=== PATIENT | female | born 1995 | race Caucasian/White ===

== ENCOUNTER 2019-05-05 20:46 | Emergency (ER) | payer OTHER ==
[2019-05-05 21:09] VITALS: BP 117/76; PULSE 97; TEMP 100.2; BMI 31.1
[2019-05-06] MEDS ORDERED: ACETAMINOPHEN 325 MG TABLET (FP) PO ONE (00:38)
[2019-05-06] MEDS ORDERED: ACETAMINOPHEN 325 MG TABLET (FP) ONE (00:39)
--- NOTE | 2019-05-06 00:56 | PDOC ---
Documentation entered by Jabier Ohara SCRIBE, acting as scribe for Ophelia Baeza MD. Ophelia Baeza MD: This documentation has been prepared by the Lev perez Daniel, SCRIBE, under my direction and personally reviewed by me in its entirety. I confirm that the documentation accurately reflects all work, treatment, procedures, and medical decision making performed by me. History of Present Illness - General Chief Complaint: Sore Throat Stated Complaint: SORE THROAT/COUGH Time Seen by Provider: 05/06/19 00:31 History Source: Patient Exam Limitations: No Limitations - History of Present Illness Initial Comments: 05/06/19 00:41 The patient is a 23 year old female with no past medical history here today for evaluation of sore throat. The patient reports that she has had a sore throat since monday (05/01/19) and that it got better at first but then became worse. She also notes associated ear pain, fever, cough, and congestion. She also notes that her mother was sick with the flu the past week. Allergies: NKA Past History - Past Medical History Allergies/Adverse Reactions: Allergies Allergy/AdvReac Type Severity Reaction Status Date / Time No Known Allergies Allergy Verified 05/05/19 21:09 Home Medications: Ambulatory Orders NK [No Known Home Medication] 05/23/13 COPD: No - Psycho Social/Smoking Cessation Hx Smoking History: Never smoked Have you smoked in the past 12 months: No Information on smoking cessation initiated: No Hx Alcohol Use: No Drug/Substance Use Hx: No Review of Systems - Review of Systems Able to Perform ROS?: Yes Comments:: 05/06/19 00:41 CONSTITUTIONAL: +fever Absent: chills, diaphoresis, generalized weakness, malaise, loss of appetite HEENT: +throat pain. +congestion. Absent: rhinorrhea, throat swelling, difficulty swallowing, mouth swelling, ear pain, eye pain, visual Changes CARDIOVASCULAR: Absent: chest pain, syncope, palpitations, irregular heart rate, lightheadedness , peripheral edema RESPIRATORY: +cough Absent: shortness of breath, dyspnea with exertion, orthopnea, wheezing, stridor , hemoptysis GASTROINTESTINAL: Absent: abdominal pain, abdominal distension, nausea, vomiting, diarrhea, constipation, melena, hematochezia GENITOURINARY: Absent: dysuria, frequency, urgency, hesitancy, hematuria, flank pain, genital pain MUSCULOSKELETAL: Absent: myalgia, arthralgia, joint swelling SKIN: Absent: rash, itching, pallor HEMATOLOGIC/IMMUNOLOGIC: Absent: easy bleeding, easy bruising, lymphadenopathy, frequent infections ENDOCRINE: Absent: unexplained weight gain, unexplained weight loss, heat intolerance, cold intolerance NEUROLOGIC: Absent: headache, focal weakness or paresthesias, dizziness, unsteady gait, seizure, mental status changes, bladder or bowel incontinence PSYCHIATRIC: Absent: anxiety, depression, suicidal or homicidal ideation, hallucinations. *Physical Exam - Vital Signs Last Vital Signs Temp Pulse Resp BP Pulse Ox 100.2 F H 97 H 17 117/76 99 05/05/19 21:06 05/05/19 21:06 05/05/19 21:06 05/05/19 21:06 05/05/19 21:06 - Physical Exam 05/06/19 00:42 GENERAL: Well-appearing, well-nourished. No apparent distress. HEENT: +rhinorrhea. +congestion Normocephalic, atraumatic. PERRL, EOM intact. CARDIOVASCULAR: +mild tachycardia Normal S1, S2. Regular rhythm. PULMONARY: Clear to auscultation bilaterally. ABDOMEN: Soft, non-distended, non-tender. EXTREMITIES: Normal ROM in all four extremities. No gross deformities. SKIN: Warm, dry. No rash NEUROLOGICAL: No focal neurological deficits. ED Treatment Course - Medications Given in the ED: ED Medications Discontinued Medications Generic Name Dose Route Start Last Admin Trade Name Freq PRN Reason Stop Dose Admin Acetaminophen 650 mg 05/06/19 00:38 05/06/19 00:40 Tylenol - PO 05/06/19 00:39 650 mg ONCE ONE Administration Medical Decision Making - Medical Decision Making 05/06/19 00:55 23-year-old female who has had fever, chills, nasal congestion, cough and sore throat since Monday presents with the symptoms. She states that her mother is suffering from the flu is currently 05/06/19 01:23 She is influenza positive however she is been sick for 5 days and Tamiflu would not be helpful Discharged home with instructions to take Tylenol or Motrin for fever headaches or muscle aches rest drink plenty of fluids Discharge - Discharge Information Problems reviewed: Yes Clinical Impression/Diagnosis: Influenza A Condition: Good Disposition: HOME - Admission No - Follow up/Referral - Patient Discharge Instructions Patient Printed Discharge Instructions: DI for Influenza -- Adult Additional Instructions: Rest Take Tylenol Motrin for fever and body aches Keep hydrated Return if you develop any breathing difficulties - Post Discharge Activity
== END 2019-05-06 01:31 | disposition home or self-care (01) ==
LOC: JER 20:46 → JERFT 20:46 → JER 05-06 01:31
DX: J09.X2 Influenza due to identified novel influenza A virus with other respiratory manifestations (principal)
CPT/HCPCS: 87070; 87804; 87880; 99282-25

== ENCOUNTER 2021-09-26 20:24 | Inpatient (IN) | payer BC, OTHER ==
[2021-09-26 23:11] LABS: EPI CELLS 6 /uL (0-25.1); HCG,QUALITATIVE URINE Negative; HYALINE CASTS 2 /uL (0-3.1); URINE APPEARANCE CLEAR; URINE BACTERIA 57 /uL (0-1359); URINE BILIRUBIN NEGATIVE (NEGATIVE); URINE COLOR YELLOW; URINE GLUCOSE (UA) 3+ (NEGATIVE); URINE KETONE 4+ (NEGATIVE); URINE LEUK ESTERASE NEGATIVE (NEGATIVE); URINE NITRITE NEGATIVE (NEGATIVE); URINE PROTEIN 2+ (NEGATIVE); URINE RBC 5 /uL (0-23.9); URINE UROBILINOGEN 0.2 mg/dL (0.2-1.0); URINE WBC 27 /uL (0-25.8)
[2021-09-26] MEDS ORDERED: SODIUM CHLORIDE 0.9% 500 ML INFUS.BAG IV ONE (23:16)
[2021-09-26 23:34] LABS: BASO % 0.8 % (0-2.0); EOS % 2.1 % (0-4.5); HEMATOCRIT 42.7 % (32.4-45.2); HEMOGLOBIN 14.5 GM/dL (10.7-15.3); LYMPH % 36.2 % (8-40); MCH 28.9 pg (25.7-33.7); MCHC 33.9 g/dl (32.0-36.0); MEAN CELL VOLUME 85.1 fl (80-96); MEAN PLT VOLUME 10.1 fl (7.5-11.1); MONO % 6.1 % (3.8-10.2); NEUT % 54.8 % (42.8-82.8); PLATELET COUNT 273 10^3/uL (134-434); RBC 5.01 M/mm3 (3.60-5.2); RDW 13.1 % (11.6-15.6); WHITE BLOOD COUNT 7.8 K/mm3 (4.0-10.0)
[2021-09-26 23:36] LABS: VENOUS BASE EXCESS -16.2 mmol/L (-2-2); VENOUS O2 SATURATION 90.4 % (70-80); VENOUS PCO2 26.9 mmHg (38-52)
[2021-09-26 23:43] LABS: VENOUS PH 7.196 (7.310-7.410)
[2021-09-26 23:55] LABS: CHLORIDE 98 mmol/L (98-107); SODIUM 130 mmol/L (136-145)
[2021-09-26 23:56] LABS: ANION GAP 19 MMOL/L (8-16); BLOOD UREA NITROGEN 12.9 mg/dL (7-18); CALCIUM 9.3 mg/dL (8.5-10.1); CO2 12 mmol/L (21-32)
[2021-09-26 23:58] LABS: ALBUMIN 4.8 g/dl (3.4-5.0)
[2021-09-26 23:59] LABS: SGPT/ALT 226 U/L (13-61)
[2021-09-27] LABS: SGOT/AST 152 U/L (15-37)
[2021-09-27 00:02] LABS: BILIRUBIN,TOTAL 0.5 mg/dL (0.2-1); TOT PROT 9.4 g/dl (6.4-8.2)
[2021-09-27 00:03] LABS: ALK PHOS 133 U/L (45-117)
[2021-09-27 00:14] LABS: GLUCOSE,RANDOM 419 mg/dL (74-106)
[2021-09-27] MEDS ORDERED: INSULIN REGULAR HUMAN 100 UNITS/ML *VIAL* (FOR IVP) IVPUSH ONE ×2 (00:18→09:00)
[2021-09-27] MEDS ORDERED: POTASSIUM CHLORIDE 20 MEQ PREMIX IVPB 100 ML IVPB ONE (00:18)
[2021-09-27] MEDS ORDERED: INSULIN REGULAR 100 UNITS in SODIUM CHLORIDE 99 ML IVPB SCH ×3 (00:30→09:30)
[2021-09-27] MEDS ORDERED: KCL 10 MEQ IVPB 10 MEQ/100 ML INFUS.BAG IVPB ONE (00:39)
[2021-09-27] MEDS ORDERED: SODIUM CHLORIDE 0.45% 1,000 ML with POTASSIUM CHLORIDE 20 MEQ IV ONE (01:00)
[2021-09-27 02:02] LABS: VENOUS O2 SATURATION 44.2 % (70-80); VENOUS PCO2 37.7 mmHg (38-52)
[2021-09-27 02:04] LABS: VENOUS PH 7.11 (7.310-7.410)
[2021-09-27 02:14] LABS: BLOOD UREA NITROGEN 10.7 mg/dL (7-18)
[2021-09-27 02:18] LABS: CREATININE 0.8 mg/dL (0.55-1.3)
[2021-09-27 02:24] LABS: CALCIUM 7.8 mg/dL (8.5-10.1)
[2021-09-27 04:17] LABS: BLOOD UREA NITROGEN 8.8 mg/dL (7-18)
[2021-09-27 04:20] LABS: CREATININE 0.8 mg/dL (0.55-1.3)
[2021-09-27] MEDS ORDERED: D5-1/2NS+30 MEQ KCL - 30 MEQ/1,000 ML INFUS.BAG IV SCH (04:45)
[2021-09-27 06:55] LABS: VENOUS BASE EXCESS -14.3 mmol/L (-2-2); VENOUS O2 SATURATION 96.6 % (70-80); VENOUS PCO2 31.5 mmHg (38-52); VENOUS PH 7.209 (7.310-7.410)
[2021-09-27] MEDS ORDERED: INSULIN SLIDING SCALE (NOVOLOG) 1 VIAL SQ SCH ×2 (07:00→08:35)
[2021-09-27 07:27] LABS: CALCIUM 8.2 mg/dL (8.5-10.1)
[2021-09-27 07:29] LABS: BLOOD UREA NITROGEN 7.8 mg/dL (7-18); MAGNESIUM 1.9 mg/dL (1.8-2.4)
[2021-09-27 07:31] LABS: CREATININE 0.7 mg/dL (0.55-1.3)
[2021-09-27] MEDS ORDERED: DEXTROSE 50%-WATER - 25 GM/50 ML VIAL IVPUSH PRN (08:36)
[2021-09-27] MEDS ORDERED: ENOXAPARIN NA (PORCINE) 40 MG/0.4 ML DISP.SYRIN SQ SCH (10:00)
[2021-09-27] MEDS ORDERED: INSULIN (LEVEMIR) 100 UNITS/ML UNITS SQ SCH ×2 (10:00→22:00)
[2021-09-27] MEDS ORDERED: MUPIROCIN 2% TOPICAL OINTMENT FOR DECOLONIZATION NS SCH ×2 (10:00→22:00)
[2021-09-27 14:40] LABS: BILIRUBIN,DIRECT 0.1 mg/dL (0.0-0.2)
[2021-09-27 14:43] LABS: BILIRUBIN,TOTAL 0.3 mg/dL (0.2-1)
[2021-09-27 14:55] LABS: ALBUMIN 3.7 g/dl (3.4-5.0)
[2021-09-27 15:05] LABS: ALBUMIN 3.5 g/dl (3.4-5.0); CALCIUM 8.4 mg/dL (8.5-10.1)
[2021-09-27 15:06] LABS: BLOOD UREA NITROGEN 4.5 mg/dL (7-18)
[2021-09-27 15:07] LABS: CREATININE 0.6 mg/dL (0.55-1.3)
[2021-09-27 15:10] LABS: BILIRUBIN,DIRECT 0.2 mg/dL (0.0-0.2)
[2021-09-27 15:11] LABS: BILIRUBIN,TOTAL 0.5 mg/dL (0.2-1)
[2021-09-27] MEDS ORDERED: INSULIN (NOVOLOG) ASPART 100 UNITS/ML 10ML VIAL SQ SCH (16:30)
[2021-09-27 16:50] LABS: ALBUMIN 3.6 g/dl (3.4-5.0)
[2021-09-27 16:54] LABS: BILIRUBIN,DIRECT 0.1 mg/dL (0.0-0.2); BILIRUBIN,TOTAL 0.5 mg/dL (0.2-1); TOT PROT 7.2 g/dl (6.4-8.2)
[2021-09-27] MEDS: INSULIN (NOVOLOG) ASPART 100 UNITS/ML 10ML VIAL SQ SCH (17:10)
[2021-09-27] MEDS ORDERED: CHLORHEXIDINE GLUCONATE 4% CLEANSER FOR DECOLONIZATION TP SCH ×2 (22:00)
[2021-09-27] MEDS ORDERED: IBUPROFEN 400 MG TABLET (FP) PO ONE (22:07)
[2021-09-28] MEDS: INSULIN (NOVOLOG) ASPART 100 UNITS/ML 10ML VIAL SQ SCH ×3 (06:39→17:47)
[2021-09-28 09:47] LABS: HEMATOCRIT 37.1 % (32.4-45.2); HEMOGLOBIN 12.9 GM/dL (10.7-15.3); MCH 29.3 pg (25.7-33.7); MCHC 34.8 g/dl (32.0-36.0); MEAN CELL VOLUME 84.2 fl (80-96); MEAN PLT VOLUME 10.2 fl (7.5-11.1); PLATELET COUNT 210 10^3/uL (134-434); RBC 4.41 M/mm3 (3.60-5.2); RDW 12.9 % (11.6-15.6); WHITE BLOOD COUNT 3.9 K/mm3 (4.0-10.0)
[2021-09-28] MEDS: ENOXAPARIN NA (PORCINE) 40 MG/0.4 ML DISP.SYRIN SQ SCH (10:10)
[2021-09-28] MEDS: SODIUM CHLORIDE 1,000 ML IV SCH (10:20)
[2021-09-28] MEDS: INSULIN (LEVEMIR) 100 UNITS/ML UNITS SQ SCH ×2 (10:40→22:18)
[2021-09-28] MEDS ORDERED: INSULIN SLIDING SCALE (NOVOLOG) 1 VIAL SQ ONE (10:44)
[2021-09-28 10:48] LABS: CALCIUM 9.1 mg/dL (8.5-10.1)
[2021-09-28 10:49] LABS: BLOOD UREA NITROGEN 5.9 mg/dL (7-18)
[2021-09-28 10:51] LABS: CREATININE 0.6 mg/dL (0.55-1.3)
[2021-09-28 15:37] VITALS: BMI 31.2
[2021-09-28 16:17] LABS: CALCIUM 8.6 mg/dL (8.5-10.1)
[2021-09-28 16:19] LABS: BLOOD UREA NITROGEN 7.4 mg/dL (7-18)
[2021-09-28 16:21] LABS: CREATININE 0.6 mg/dL (0.55-1.3)
[2021-09-28] MEDS ORDERED: ATORVASTATIN CA 20 MG TABLET (FP) PO SCH (22:00)
[2021-09-28] MEDS: INSULIN SLIDING SCALE (NOVOLOG) 1 VIAL SQ SCH (22:18)
[2021-09-29] MEDS: INSULIN (LEVEMIR) 100 UNITS/ML UNITS SQ SCH (06:26)
[2021-09-29] MEDS: INSULIN SLIDING SCALE (NOVOLOG) 1 VIAL SQ SCH ×3 (06:27→16:24)
[2021-09-29] MEDS ORDERED: INSULIN (LEVEMIR) 100 UNITS/ML UNITS SQ ONE (07:51)
[2021-09-29 08:44] LABS: HEMATOCRIT 33.3 % (32.4-45.2); HEMOGLOBIN 11.6 GM/dL (10.7-15.3); MCHC 34.7 g/dl (32.0-36.0); MEAN CELL VOLUME 83.6 fl (80-96); MEAN PLT VOLUME 9.9 fl (7.5-11.1); PLATELET COUNT 180 10^3/uL (134-434); RBC 3.99 M/mm3 (3.60-5.2); RDW 13.1 % (11.6-15.6); WHITE BLOOD COUNT 3.7 K/mm3 (4.0-10.0)
[2021-09-29 09:16] LABS: ALBUMIN 3.3 g/dl (3.4-5.0); BLOOD UREA NITROGEN 5.6 mg/dL (7-18)
[2021-09-29 09:17] LABS: MAGNESIUM 1.9 mg/dL (1.8-2.4)
[2021-09-29 09:18] LABS: CALCIUM 8.5 mg/dL (8.5-10.1)
[2021-09-29 09:19] LABS: PHOSPHOROUS 3.6 mg/dL (2.5-4.9)
[2021-09-29 09:21] LABS: BILIRUBIN,TOTAL 0.6 mg/dL (0.2-1); CREATININE 0.5 mg/dL (0.55-1.3); TOT PROT 6.3 g/dl (6.4-8.2)
[2021-09-29] MEDS ORDERED: LISINOPRIL 5 MG TABLET PO SCH (10:00)
[2021-09-29] MEDS: SODIUM CHLORIDE 1,000 ML IV SCH (10:04)
[2021-09-29] MEDS: ENOXAPARIN NA (PORCINE) 40 MG/0.4 ML DISP.SYRIN SQ SCH (10:05)
[2021-09-29 14:47] VITALS: BP 113/83; PULSE 89; TEMP 98.5
== END 2021-09-29 17:58 | disposition home or self-care (01) | DRG 639 ==
LOC: JERFT 20:24 → JERBED 09-27 00:19 → JICU 09-27 02:52 → J5S 09-27 18:02
PROVIDERS: ADMIT Internal Medicine Pulmonary Disease
DX: E11.10 Type 2 diabetes mellitus with ketoacidosis without coma (principal); E66.9 Obesity, unspecified; Z68.31 Body mass index [BMI] 31.0-31.9, adult; R74.01 Elevation of levels of liver transaminase levels; E78.1 Pure hyperglyceridemia; E86.0 Dehydration; R80.9 Proteinuria, unspecified; K76.0 Fatty (change of) liver, not elsewhere classified
CPT/HCPCS: 36415; 71045-TC-FY; 76705-TC; 76775-TC; 80048; 80053; 80061; 80076; 81003; 82010; 82248; 82570; 82803; 82962; 83036; 83605; 83735; 84100; 84156; 84443; 84703; 85025; 85027; 86341; 86705; 87086; 87340; 87350; 87517; 87902; 93005; 93010; 99285-25; C9803-CS; U0003; U0005

== ENCOUNTER 2023-08-21 13:34 | Inpatient (IN) | payer BC ==
[2023-08-21] MEDS ORDERED: ONDANSETRON 4 MG/2 ML VIAL ONE (16:18)
[2023-08-21] MEDS: ONDANSETRON 4 MG/2 ML VIAL IVPUSH ONE (16:30)
[2023-08-21 16:42] LABS: BASO % 0.2 % (0-2.0); EOS % 0.3 % (0-4.5); HEMATOCRIT 46.2 % (32.4-45.2); HEMOGLOBIN 15.5 GM/dL (10.7-15.3); LYMPH % 17.2 % (8-40); MCH 29.6 pg (25.7-33.7); MCHC 33.5 g/dl (32.0-36.0); MEAN CELL VOLUME 88.4 fl (80-96); MEAN PLT VOLUME 10.3 fl (7.5-11.1); MONO % 4.9 % (3.8-10.2); NEUT % 77.4 % (42.8-82.8); PLATELET COUNT 309 10^3/uL (134-434); RBC 5.23 M/mm3 (3.60-5.2); RDW 13.4 % (11.6-15.6); WHITE BLOOD COUNT 10.5 K/mm3 (4.0-10.0)
[2023-08-21 16:46] LABS: VENOUS BASE EXCESS -21.7 mmol/L (-2-2); VENOUS O2 SATURATION 87.7 % (70-80)
[2023-08-21 16:51] LABS: VENOUS PH 7.118 (7.310-7.410)
[2023-08-21 16:56] LABS: INR 1.07 (0.83-1.09); PROTHROMBIN TIME (PATIENT) 12.4 SEC (9.7-13.0)
[2023-08-21 17:11] LABS: ALBUMIN 4.8 g/dl (3.4-5.0); BLOOD UREA NITROGEN 9.9 mg/dL (7-18); CALCIUM 9.4 mg/dL (8.5-10.1); MAGNESIUM 2.4 mg/dL (1.8-2.4)
[2023-08-21 17:16] LABS: BILIRUBIN,TOTAL 0.5 mg/dL (0.2-1); TOT PROT 9.3 g/dl (6.4-8.2)
[2023-08-21] MEDS ORDERED: DEXTROSE 50%-WATER - 25 GM/50 ML VIAL IVPUSH PRN (19:22)
[2023-08-21] MEDS ORDERED: INSULIN REGULAR HUMAN 100 UNITS/ML *VIAL ONE (19:42)
[2023-08-21] MEDS ORDERED: METOCLOPRAMIDE HCL INJECTION 10 MG/2 ML VIAL ONE (19:42)
[2023-08-21] MEDS ORDERED: ACETAMINOPHEN INJECTION 100 ML IVPB ONE (19:42)
[2023-08-21] MEDS: ACETAMINOPHEN 1000 MG/100 ML BAG IVPB ONE (19:50)
[2023-08-21] MEDS: LACTATED RINGERS SOLUTION 1000 ML INFUS.BAG IV ONE (19:50)
[2023-08-21] MEDS: METOCLOPRAMIDE HCL INJECTION 10 MG/2 ML VIAL IVPUSH ONE (19:50)
[2023-08-21] MEDS: INSULIN REGULAR HUMAN 100 UNITS/ML *VIAL* (FOR IVP) IVPUSH ONE (20:41)
[2023-08-21 21:25] LABS: POTASSIUM 3.9 mmol/L (3.5-5.1)
[2023-08-21 21:26] LABS: CALCIUM 8.6 mg/dL (8.5-10.1)
[2023-08-21 21:27] LABS: BLOOD UREA NITROGEN 9.9 mg/dL (7-18)
[2023-08-21 21:30] LABS: CREATININE 0.9 mg/dL (0.55-1.3)
[2023-08-21] MEDS: D5-LR+20 MEQ KCL - 20 MEQ/1,000 ML INFUS.BAG IV SCH (21:42)
[2023-08-21] MEDS: INSULIN REGULAR 100 UNITS in SODIUM CHLORIDE 99 ML IVPB SCH (21:42)
[2023-08-22 03:03] LABS: POTASSIUM 3.6 mmol/L (3.5-5.1)
[2023-08-22 03:04] LABS: CALCIUM 8.5 mg/dL (8.5-10.1)
[2023-08-22 03:05] LABS: BLOOD UREA NITROGEN 8.9 mg/dL (7-18); MAGNESIUM 2.1 mg/dL (1.8-2.4)
[2023-08-22 03:08] LABS: CREATININE 0.9 mg/dL (0.55-1.3); PHOSPHOROUS 1.7 mg/dL (2.5-4.9)
[2023-08-22] MEDS: HEPARIN NA (PORCINE) 5,000 UNITS/ML 1ML VIAL SQ SCH (05:38)
[2023-08-22 06:45] LABS: HEMATOCRIT 36.9 % (32.4-45.2); HEMOGLOBIN 12.7 GM/dL (10.7-15.3); MCH 29.7 pg (25.7-33.7); MCHC 34.3 g/dl (32.0-36.0); MEAN CELL VOLUME 86.6 fl (80-96); PLATELET COUNT 221 10^3/uL (134-434); RBC 4.26 M/mm3 (3.60-5.2); RDW 13.5 % (11.6-15.6); WHITE BLOOD COUNT 5.4 K/mm3 (4.0-10.0)
[2023-08-22 06:48] LABS: POTASSIUM 3.5 mmol/L (3.5-5.1)
[2023-08-22 06:54] LABS: BLOOD UREA NITROGEN 8.8 mg/dL (7-18); CALCIUM 8.5 mg/dL (8.5-10.1); MAGNESIUM 2.1 mg/dL (1.8-2.4)
[2023-08-22 06:58] LABS: CREATININE 0.9 mg/dL (0.55-1.3); PHOSPHOROUS 2.1 mg/dL (2.5-4.9)
[2023-08-22] MEDS: PANTOPRAZOLE SODIUM 40 MG VIAL IVPUSH SCH (09:19)
[2023-08-22] MEDS: INSULIN (LEVEMIR) 100 UNITS/ML UNITS SQ SCH (09:20)
[2023-08-22] MEDS: SODIUM CHLORIDE 1,000 ML IV SCH (09:21)
[2023-08-22] MEDS: POTASSIUM PHOSPHATE 30 MM in DEXTROSE 5%-WATER - 500 ML IVPB ONE (09:21)
[2023-08-22] MEDS: INSULIN (NOVOLOG) ASPART 100 UNITS/ML 10ML VIAL SQ SCH (11:46)
[2023-08-22] MEDS: INSULIN ASPART SLIDING SCALE (NOVOLOG) 1 VIAL SQ SCH (11:46)
[2023-08-22] MEDS: LACTATED RINGERS SOLUTION 1,000 ML/1,000 ML INFUS.BAG IV SCH (12:52)
[2023-08-22 13:29] LABS: POTASSIUM 3.4 mmol/L (3.5-5.1)
[2023-08-22 13:30] LABS: CALCIUM 8.8 mg/dL (8.5-10.1)
[2023-08-22 13:31] LABS: ALBUMIN 3.9 g/dl (3.4-5.0); BLOOD UREA NITROGEN 6.5 mg/dL (7-18)
[2023-08-22 13:34] LABS: BILIRUBIN,DIRECT 0.2 mg/dL (0.0-0.2); CREATININE 0.8 mg/dL (0.55-1.3)
[2023-08-22 13:36] LABS: BILIRUBIN,TOTAL 0.7 mg/dL (0.2-1); TOT PROT 7.6 g/dl (6.4-8.2)
[2023-08-22 14:06] LABS: VENOUS BASE EXCESS -14.5 mmol/L (-2-2); VENOUS PCO2 21.8 mmHg (38-52); VENOUS PH 7.28 (7.310-7.410)
[2023-08-22 14:14] LABS: EPI CELLS 10 /uL (0-25.1); HYALINE CASTS 1 /uL (0-3.1); PH,URINE 5.5 (5.0-8.0); URINE APPEARANCE CLEAR; URINE BACTERIA 94 /uL (0-1359); URINE BILIRUBIN NEGATIVE (NEGATIVE); URINE COLOR YELLOW; URINE GLUCOSE (UA) 3+ (NEGATIVE); URINE KETONE 4+ (NEGATIVE); URINE LEUK ESTERASE NEGATIVE (NEGATIVE); URINE NITRITE NEGATIVE (NEGATIVE); URINE PROTEIN 1+ (NEGATIVE); URINE RBC 350 /uL (0-23.9); URINE UROBILINOGEN 0.2 mg/dL (0.2-1.0); URINE WBC 7 /uL (0-25.8)
[2023-08-22] MEDS: NAPH,MB-DB/K PH,MBDB POWDER PACKET PO SCH (14:17)
[2023-08-22] MEDS: ACETAMINOPHEN 500 MG TABLET (FP) PO PRN (16:59)
[2023-08-23 08:00] LABS: POTASSIUM 3.3 mmol/L (3.5-5.1)
[2023-08-23 08:05] LABS: BLOOD UREA NITROGEN 5.5 mg/dL (7-18)
[2023-08-23 08:06] LABS: CALCIUM 8.5 mg/dL (8.5-10.1)
[2023-08-23 08:08] LABS: CREATININE 0.7 mg/dL (0.55-1.3); PHOSPHOROUS 2.7 mg/dL (2.5-4.9)
[2023-08-23] MEDS: ENOXAPARIN NA (PORCINE) 40 MG/0.4 ML DISP.SYRIN SQ SCH (09:13)
[2023-08-23] MEDS: POTASSIUM CHLORIDE ORAL LIQUID 20 MEQ/15 ML PO ONE (09:14)
[2023-08-23 15:41] VITALS: BMI 28.8
[2023-08-24] MEDS: INSULIN (NOVOLOG) ASPART 100 UNITS/ML 10ML VIAL SQ SCH (06:41)
[2023-08-24] MEDS: INSULIN ASPART SLIDING SCALE (NOVOLOG) 1 VIAL SQ SCH (06:58)
[2023-08-24 07:29] LABS: BASO % 0.5 % (0-2.0); EOS % 2.3 % (0-4.5); HEMATOCRIT 33.3 % (32.4-45.2); HEMOGLOBIN 11.4 GM/dL (10.7-15.3); LYMPH % 51.6 % (8-40); MCH 29.6 pg (25.7-33.7); MCHC 34.1 g/dl (32.0-36.0); MEAN CELL VOLUME 86.6 fl (80-96); MEAN PLT VOLUME 9.5 fl (7.5-11.1); MONO % 9.5 % (3.8-10.2); NEUT % 36.1 % (42.8-82.8); PLATELET COUNT 157 10^3/uL (134-434); RBC 3.84 M/mm3 (3.60-5.2); RDW 13.4 % (11.6-15.6); WHITE BLOOD COUNT 4.4 K/mm3 (4.0-10.0)
[2023-08-24 07:31] LABS: POTASSIUM 3.2 mmol/L (3.5-5.1)
[2023-08-24 07:35] LABS: ALBUMIN 3.3 g/dl (3.4-5.0); BLOOD UREA NITROGEN 6.1 mg/dL (7-18); CALCIUM 8.9 mg/dL (8.5-10.1)
[2023-08-24 07:43] LABS: TOT PROT 6.3 g/dl (6.4-8.2)
[2023-08-24 07:44] LABS: BILIRUBIN,TOTAL 0.4 mg/dL (0.2-1); CREATININE 0.6 mg/dL (0.55-1.3)
[2023-08-24] MEDS: POTASSIUM CHLORIDE TABS 20 MEQ TABLET.ER (FP) PO ONE (09:20)
[2023-08-24 10:38] VITALS: BP 99/72; PULSE 69; RESP 16; TEMP 98.2
== END 2023-08-24 11:30 | disposition home or self-care (01) | DRG 639 ==
LOC: JER 13:34 → JERBED 22:54 → JICU 23:15
PROVIDERS: ADMIT Internal Medicine Pulmonary Disease; ATTEND Internal Medicine
DX: E11.10 Type 2 diabetes mellitus with ketoacidosis without coma (principal); R00.0 Tachycardia, unspecified; M79.662 Pain in left lower leg; E83.39 Other disorders of phosphorus metabolism
CPT/HCPCS: 0241U-QW; 36415; 71275-TC; 80048; 80053; 80076; 81003; 82010; 82803; 82962; 83036; 83605; 83735; 84100; 84484; 84703; 85025; 85027; 85610; 85730; 86850; 86900; 86901; 93005; 93010; 93971-TC; 99285-25; J0131; J1644; Q9967